=== PATIENT | female | born 2000 | race African-American/Black ===

== ENCOUNTER 2022-07-25 14:54 | Emergency (ER) | payer OTHER, SELFPAY ==
[2022-07-25 15:07] VITALS: BP 129/74; PULSE 82; RESP 16; TEMP 36.4; O2SAT 99
--- NOTE | 2022-07-25 15:38 | ED.GENADULT ---
HPI - General Adult General Chief complaint: Urogenital-Female Stated complaint: perez Time Seen by Provider: 07/25/22 15:20 Source: patient, RN notes reviewed and old records reviewed Mode of arrival: ambulatory Limitations: no limitations History of Present Illness HPI narrative: 22 year old female who presents to [facility] care with complaints of having her menses on July 08 and stopped on the . She reports that she had heavier flow at first then just spotting. She reports that yesterday she started spotting again with flow a little heavier today, mild cramping. Patient denies any acute pain to abdomen or to back..... Patient reports that she has no concern for STD's, has not been on any recent antibiotics and is not taking any control. Patient states that she had a little bit of a headache and some nausea a few days ago that was intermittent for one day.. Patient has a 6 year old child, has never had abnormal pap and states that it has been over a year since she had PAP. Patient states she completed [employer] school in February and she has been studying to take her boards. complaint: abnormal uterine bleeding Onset (ago): day(s) (2) Related Data Allergies Allergy/AdvReac Type Severity Reaction Status Date / Time No Known Allergies Allergy Verified 07/25/22 15:26 Review of Systems Review of Systems: CONSTITUTIONAL: Denies fever, chills, or sweats. EYES: Denies visual changes, redness, or discharge. ENT: Denies rhinorrhea, congestion, sore throat, or otalgia. CARDIOVASCULAR: Denies chest pain, palpitations, or edema. RESPIRATORY: Denies cough or dyspnea. GASTROINTESTINAL: cramping lower abdominal area, no nausea, vomiting, or diarrhea. GENITOURINARY: Denies dysuria or hematuria. SKIN: Denies rash or itching. MUSCULOSKELETAL: Denies back pain, joint pain, or myalgia. NEUROLOGIC: Denies present headache, numbness, or weakness. PSYCHIATRIC: Denies anxiety or depression. All systems reviewed & are unremarkable except as noted in HPI and below PMFSH Surgical History Surgical History (Updated 07/28/22 @ 21:06 by Katie Chaidez NP) Previous section Social History Social History (Updated 07/28/22 @ 21:06 by Katie Chaidez NP) Smoking status: Never smoker Alcohol intake: current Alcohol use details: social Substance use type: does not use Living arrangements: with family Gender identity (if verbalized by the patient): Female Comments At time of signature, agree with nursing past medical, surgical, social and family history. There is no relevant family history pertinent to the presenting complaint Exam Narrative: GENERAL: Well-appearing, well-nourished, and in no acute distress. HEAD: Normocephalic, atraumatic. EYES: PERRLA and EOMI. ENT: Nares clear, no rhinorrhea or epistaxis. Mucous membranes moist.TM's normal with good light reflex, throat pink with no lesions or swelling NECK: Supple.no lymphadenopathy CHEST: Clear to auscultation. No respiratory distress.SAO2 99% on room air HEART: Regular rate and rhythm. No murmur heard. Normal peripheral pulses. ABDOMEN: Soft, nontender to palpation no McBurney point tenderness,reports some lower abdominal cramping no severe pain, nondistended, normal active bowel sounds. EXTREMITIES: Normal range of motion. No edema. SKIN: Warm, dry, no rash. NEURO: No focal deficits. Alert and oriented x3. Course Course Level of Care: Express Care Visit Vital Signs Vital signs: Vital Signs Temperature 36.4 C L 07/25/22 15:07 Pulse Rate 82 07/25/22 15:07 Respiratory Rate 16 07/25/22 15:07 Blood Pressure 129/74 07/25/22 15:07 Pulse Oximetry 99 07/25/22 15:07 Oxygen Delivery Room Air 07/25/22 15:07 Temperature 36.4 C L 07/25/22 15:07 Pulse Rate 82 07/25/22 15:07 Respiratory Rate 16 07/25/22 15:07 Blood Pressure 129/74 07/25/22 15:07 Pulse Oximetry 99 07/25/22 15:07 Oxygen Delivery Room Air 07/25/22 15:07 Medi
== END 2022-07-25 16:02 | disposition home or self-care (01) ==
PROVIDERS: Emergency Provider Registered Nurse
DX: N39.8 Other specified disorders of urinary system (principal)
CPT/HCPCS: 81025; 99203; G0463

== ENCOUNTER 2023-03-19 11:42 | Outpatient (CLI) | payer OTHER, SELFPAY ==
[2023-03-19 12:09] LABS: Basophils Percent Auto 0.3 % (0.2-1.2); Eosinophils Absolute Auto 0.2 K/mm3 (0-0.3); Eosinophils Percent Auto 2.2 % (0-4.4); Hematocrit 30.2 % (37.0-47.0); Hemoglobin 9.6 g/dL (12.0-15.0); Immature Granulocyte Absolute 0.03 K/mm3 (0.00-0.031); Immature Granulocyte Percent A 0.4 % (0-0.5); Lymphocytes Percent Auto 19.7 % (18.3-44.2); Mean Corpuscular HGB Conc 31.8 g/dl (32-36); Mean Corpuscular Hemoglobin 26.5 pg (26-34); Mean Corpuscular Volume 83.4 fl (80-100); Mean Platelet Volume 10.2 fl (7.4-10.4); Monocytes Absolute Auto 0.5 K/mm3 (0.1-0.6); Monocytes Percent Auto 6.7 % (2.6-8.5); Neutrophils Absolute Auto 5.4 K/mm3 (1.3-6.7); Neutrophils Percent Auto 70.7 % (45.5-73.1); Platelet Count Result 233 k/mm3 (150-375); Red Blood Count 3.62 M/mm3 (4.2-5.4); Red Cell Distribution Width 15.9 % (11.5-14.5); White Blood Count 7.6 K/mm3 (4.5-10.0)
[2023-03-19 13:05] LABS: HIV 1/2 Ab P24 Ag Result Negative (Negative)
[2023-03-19 13:26] LABS: Hepatitis B Surface Antigen Negative (Negative); Rubella IgG Antibody 99.5 IU/ML
[2023-03-20 08:53] LABS: Rapid Plasma Reagin Non-Reactive (NonReactive)
[2023-03-26 09:10] LABS: CMV IgG Antibody <0.60 U/mL (<0.60)
[2023-03-31 14:12] LABS: CF Result NEGATIVE (NEGATIVE)
[2023-04-03 09:07] LABS: SMA 2.0 RISK VARIANT NOT DETECTED
[2023-04-03 14:35] LABS: SMA Results Received Yes
== END 2023-03-19 11:43 | disposition home or self-care (01) ==
PROVIDERS: Visit Provider Obstetrics & Gynecology
DX: N91.2 Amenorrhea, unspecified (principal)
CPT/HCPCS: 36415; 81220; 81329; 85025; 85660; 86592; 86644; 86703; 86747; 86762; 86787; 86850; 86900; 86901; 87086; 87340; G0432

== ENCOUNTER 2023-06-16 09:12 | Outpatient (CLI) | payer OTHER, SELFPAY ==
[2023-06-16 10:08] LABS: Basophils Percent Auto 0.3 % (0.2-1.2); Eosinophils Absolute Auto 0.2 K/mm3 (0-0.3); Eosinophils Percent Auto 2.7 % (0-4.4); Hematocrit 31.7 % (37.0-47.0); Hemoglobin 9.9 g/dL (12.0-15.0); Immature Granulocyte Absolute 0.04 K/mm3 (0.00-0.031); Immature Granulocyte Percent A 0.6 % (0-0.5); Lymphocytes Absolute Auto 1.34 K/mm3 (0.9-3.2); Lymphocytes Percent Auto 19.2 % (18.3-44.2); Mean Corpuscular HGB Conc 31.2 g/dl (32-36); Mean Corpuscular Hemoglobin 28.1 pg (26-34); Mean Corpuscular Volume 90.1 fl (80-100); Mean Platelet Volume 11.1 fl (7.4-10.4); Monocytes Absolute Auto 0.7 K/mm3 (0.1-0.6); Monocytes Percent Auto 10.3 % (2.6-8.5); Neutrophils Absolute Auto 4.7 K/mm3 (1.3-6.7); Neutrophils Percent Auto 66.9 % (45.5-73.1); Platelet Count Result 206 k/mm3 (150-375); Red Blood Count 3.52 M/mm3 (4.2-5.4); Red Cell Distribution Width 16.8 % (11.5-14.5)
[2023-06-16 11:00] LABS: Iron 124 ug/dL (37-170)
[2023-06-16 11:09] LABS: Percent Iron Saturation 25 % (20-50)
== END 2023-06-16 09:13 | disposition home or self-care (01) ==
PROVIDERS: Referring Provider Obstetrics & Gynecology; Visit Provider Obstetrics & Gynecology
DX: Z34.90 Encounter for supervision of normal pregnancy, unspecified, unspecified trimester (principal); Z3A.00 Weeks of gestation of pregnancy not specified
CPT/HCPCS: 36415; 82105; 82677; 83540; 83550; 84702; 85025; 86336

== ENCOUNTER 2023-07-04 12:27 | Outpatient (CLI) | payer OTHER, SELFPAY ==
[2023-07-04 14:16] LABS: Glucose 1 Hour PP 50gm Dose 96 mg/dL
== END 2023-07-04 12:28 | disposition home or self-care (01) ==
LOC: ANHLAB 12:29
PROVIDERS: Visit Provider Obstetrics & Gynecology
DX: Z34.90 Encounter for supervision of normal pregnancy, unspecified, unspecified trimester (principal); Z3A.00 Weeks of gestation of pregnancy not specified
CPT/HCPCS: 36415; 82947

== ENCOUNTER 2023-08-05 10:10 | Outpatient (CLI) | payer OTHER, SELFPAY ==
[2023-08-05 10:53] LABS: Hematocrit 32.2 % (37.0-47.0); Hemoglobin 10.3 g/dL (12.0-15.0)
== END 2023-08-05 10:11 | disposition home or self-care (01) ==
LOC: ANHLAB 10:11
PROVIDERS: Visit Provider Student in an Organized Health Care Education/Training Program
DX: O99.012 Anemia complicating pregnancy, second trimester (principal); Z3A.00 Weeks of gestation of pregnancy not specified
CPT/HCPCS: 36415; 85014; 85018

== ENCOUNTER 2023-09-24 10:21 | Inpatient (IN) | payer OTHER, SELFPAY ==
[2023-09-24] VITALS (45 sets, daily range): BP systolic 91–134; BP diastolic 47–76; PULSE 54–105; RESP 12–20; TEMP 36.2–37.1; O2SAT 81–100; BMI 36.3
--- NOTE | 2023-09-24 09:32 | PM.IMHP ---
H&P: HPI History of Present Illness Date/Time: 09/24/23 09:32 Chief Complaint: intrauterine at term prior x1 Narrative: 23-year-old 011 who presents at 39 weeks 0 days for repeat . Patient's has been largely uncomplicated. Patient did have anemia on iron supplements. She reports good movement. Review of Systems Review of Systems: All systems reviewed & are unremarkable except as noted in HPI and below Cardiovascular: Cardiovascular: Denies chest pain, Denies leg edema, Denies palpitations, Denies dyspnea and Denies dyspnea on exertion Respiratory: Respiratory: Denies cough, Denies dyspnea and Denies dyspnea on exertion Gastrointestinal: Gastrointestinal: Denies abdominal pain, Denies constipation, Denies diarrhea, Denies nausea and Denies vomiting Genitourinary: Genitourinary: Denies hematuria, Denies urinary frequency, Denies dysuria, Denies pelvic pain, Denies urinary incontinence and Denies vaginal discharge Neurologic: Reports system reviewed and no additional complaints, except as documented Psychiatric: Psychiatric: Reports no additional psychiatric complaints Endocrine: Endocrine: Denies palpitations [facility] Past Medical History Medical History (~2019) done with medication Vaginal discharge Surgical History Surgical History Previous section (07/29/15) primary c/s distress Family History Family History Grandparent Diabetes mellitus paternal grandmother Hypertension paternal grandmother Father Hypertension Social History Social History Smoking status: Never smoker Alcohol intake: former Alcohol use details: social Substance use: never Substance use type: does not use Lack of Transportation: No Lack of Food: Never True Current Housing: I Have Housing Concerned About Future Housing: No Difficulty Paying Gas/Electric Bills: No Difficulty Paying for Meds: No Currently Unemployed: No Education: Bachelor's Degree Difficulty w/ Childcare or Family Care: No Living arrangements: with family Additional living arrangements comments: pt lives with daughter 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 Gender identity (if verbalized by the patient): Female Sexual Orientation (if Verbalized by the Patient): Straight or Heterosexual Spiritual care concerns: No Meds Home Medications and Allergies Home Medications Medication Instructions Recorded Confirmed Type ondansetron HCl 4 mg tablet 4 mg PO Q6H PRN nausea and 03/19/23 09/02/23 Rx vomiting #30 tabs ferrous sulfate 325 mg (65 mg 325 mg PO DAILY 06/20/23 09/02/23 History iron) tablet (iron) prenat.vits,aleks,sjr-cxdh-qhxft 1 tablet PO DAILY 06/20/23 09/02/23 History Allergies Allergy/AdvReac Type Severity Reaction Status Date / Time No Known Allergies Allergy Verified 09/22/23 11:15 Exam Const: General: no acute distress Eyes: EOM: EOMs intact bilaterally Neck: Neck: supple Thyroid: thyroid normal Chest: Breast/axilla inspection: normal inspection of the breasts Breast/axilla palpation: normal palpation of the breasts, normal palpation of the axillae and no axillary lymphadenopathy Resp: Effort & Inspection: normal respiratory effort Auscultation: clear to auscultation bilaterally Cardio: Rate: regular rate Rhythm: regular rhythm GI: Inspection: non-distended and other (Gravid) GI Palp: Yes Soft to palpation, No Tenderness to palpation present (GI) and No Guarding due to palpation present (GI) Auscultation: normal bowel sounds : Speculum Exam - Vagina: No vaginal bleeding OB/external & speculum: external exam normal; No vaginal bleeding S
[2023-09-24] MEDS: LACTATED RINGERS 1,000 ML 125 ML IV CONT (11:07)
--- NOTE | 2023-09-24 11:15 | LDADM ---
This patient, Bonnie Mi, was admitted to Labor/Delivery/Recovery 119 on 09/24/23 at 10:21. Plans for labor, pain management and were discussed with patient. Patient/family oriented to hospital policies and general routines including ID bracelet, bed and alarms, visiting hours, pain management, procedures, bathroom and other care routines, personal items, smoking policy, room service/diet and guest tray routines, security routines, and visiting hours. Patient/Family are encouraged to report perceived risks to care and to ask questions if they do not understand what they are told or what they should do. See OBIX for further documentation.
[2023-09-24 11:21] LABS: Basophils Percent Auto 0.2 % (0.2-1.2); Eosinophils Absolute Auto 0.1 K/mm3 (0-0.3); Eosinophils Percent Auto 1.2 % (0-4.4); Hematocrit 36.2 % (37.0-47.0); Hemoglobin 11.7 g/dL (12.0-15.0); Immature Granulocyte Absolute 0.02 K/mm3 (0.00-0.031); Immature Granulocyte Percent A 0.4 % (0-0.5); Lymphocytes Absolute Auto 1.44 K/mm3 (0.9-3.2); Lymphocytes Percent Auto 25.3 % (18.3-44.2); Mean Corpuscular HGB Conc 32.3 g/dl (32-36); Mean Corpuscular Hemoglobin 29.6 pg (26-34); Mean Corpuscular Volume 91.6 fl (80-100); Mean Platelet Volume 11.2 fl (7.4-10.4); Monocytes Absolute Auto 0.5 K/mm3 (0.1-0.6); Monocytes Percent Auto 8.4 % (2.6-8.5); Neutrophils Absolute Auto 3.7 K/mm3 (1.3-6.7); Neutrophils Percent Auto 64.5 % (45.5-73.1); Platelet Count Result 171 k/mm3 (150-375); Red Blood Count 3.95 M/mm3 (4.2-5.4); Red Cell Distribution Width 14.1 % (11.5-14.5); White Blood Count 5.7 K/mm3 (4.5-10.0)
--- NOTE | 2023-09-24 11:36 | WPDANESEPPF ---
Anes - Initial Pre Proc Eval Procedure: Operation Date: 09/24/23 12:00 Proposed Procedures p Repeat Section - Juan Mayes MD Date/Time: 09/24/23 11:36 Surgeon: Juan Mayes MD Pre Op Diagnosis: c/s Patient Data Age: 23 Gender: F Height: 1.6 m Weight: 93 kg Last Vital Signs Pulse 83 09/24/23 11:31 BP 120/71 09/24/23 11:31 O2 Del Method Room Air 09/24/23 11:11 Allergies Allergy/AdvReac Type Severity Reaction Status Date / Time No Known Allergies Allergy Verified 09/22/23 11:15 Home Medications Medication Instructions Recorded Confirmed Type ondansetron HCl 4 mg tablet 4 mg PO Q6H PRN nausea and 03/19/23 09/02/23 Rx vomiting #30 tabs ferrous sulfate 325 mg (65 mg 325 mg PO DAILY 06/20/23 09/02/23 History iron) tablet (iron) prenat.vits,aleks,ena-fkvq-oejnx 1 tablet PO DAILY 06/20/23 09/02/23 History Laboratory Tests 09/24/23 10:43 WBC 5.7 K/mm3 (4.5-10.0) RBC 3.95 L M/mm3 (4.2-5.4) Hgb 11.7 L g/dL (12.0-15.0) Hct 36.2 L % (37.0-47.0) MCV 91.6 fl (80-100) MCH 29.6 pg (26-34) MCHC 32.3 g/dl (32-36) RDW 14.1 % (11.5-14.5) Plt Count 171 k/mm3 (150-375) MPV 11.2 H fl (7.4-10.4) Immature Gran % (Auto) 0.4 % (0-0.5) Neut % (Auto) 64.5 % (45.5-73.1) Lymph % (Auto) 25.3 % (18.3-44.2) [place] % (Auto) 8.4 % (2.6-8.5) Eos % (Auto) 1.2 % (0-4.4) Baso % (Auto) 0.2 % (0.2-1.2) Lymph # (Auto) 1.44 K/mm3 (0.9-3.2) [place] # (Auto) 0.5 K/mm3 (0.1-0.6) Eos # (Auto) 0.1 K/mm3 (0-0.3) Baso # (Auto) 0.0 K/mm3 (0.0-0.1) Abs Immat Gran (auto) 0.02 K/mm3 (0.00-0.031) Absolute Neuts (auto) 3.7 K/mm3 (1.3-6.7) Absolute Nucleated RBC 0.0 K/mm3 (0.0-0.012) Nucleated RBC % 0.0 % (0.0-0.2) RPR Pending HIV 1&2 Ab/P24 Ag 4thGn Pending Blood Type O Positive Antibody Screen Pending Patient hx anesthesia problems: none Family hx anesthesia problems: none Results Review: All pre-operative results and documents have been reviewed as part of the pre-operative evaluation. [facility] [place] Past Medical History Medical History (~2019) done with medication Vaginal discharge Surgical History Surgical History Previous section (07/29/15) primary c/s distress Family History Family History Grandparent Diabetes mellitus paternal grandmother Hypertension paternal grandmother Father Hypertension Social History Social History Smoking status: Never smoker Alcohol intake: former Alcohol use details: social Substance use: never Substance use type: does not use Lack of Transportation: No Lack of Food: Never True Current Housing: I Have Housing Concerned About Future Housing: No Difficulty Paying Gas/Electric Bills: No Difficulty Paying for Meds: No Currently Unemployed: YES Education: Bachelor's Degree Difficulty w/ Childcare or Family Care: No Living arrangements: with family Additional living arrangements comments: pt lives with daughter 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
[2023-09-24 11:59] LABS: HIV 1/2 Ab P24 Ag Result Negative (Negative)
[2023-09-24] MEDS: ceFAZolin 2 GM/D5W 50 ML 2 GM/50 ML BAG IVPB (11:59)
[2023-09-24] MEDS: KETOROLAC 30 MG/ML VIAL (*BKC) IV PUSH (12:55)
--- NOTE | 2023-09-24 13:03 | P.PCNOB_ITS ---
OB - Delivery Note Procedure Delivery date: 09/24/23 Pre-op diagnosis: Previous Delivery Post-op Diagnosis: Same Induction method: None Delivery monitor: None Procedure Performed: Repeat Secondary branch: low cervical, transverse Surgeon: Juan Mayes MD Anesthesia type: Spinal Description of Procedure/Findings: The patient was taken to the operating room where epidural anesthesia was found to be adequate. She was then prepped and draped in the usual sterile fashion in the dorsal supine position with a leftward tilt. A Pfannenstiel skin incision was then made with the scalpel and carried through to the underlying layer of fascia. The fascia was then incised in the midline and the incision extended laterally with the Tate scissors. The superior aspect of the fascia was then grasped with the Shimon clamps, elevated, and the underlying rectus m uscles dissected off bluntly and sharply. Attention was then turned to the inferior aspect of this incision which, in a similar fashion, was grasped, tented up with the Shimon clamps, and the rectus muscles dissected off both bluntly and sharply. The rectus muscles were then in the midline, and the peritoneum identified, tented up, and entered sharply with the Metzenbaum scissors. The peritoneal incision was then extended superiorly and inferiorly with good visualization of the bladder. The peritoneum was intimately adherent to the anterior uterus. This adhesions was dissected off of the uterus with Bovie cautery. An jie ring retractor was placed intra-abdominally for better visualization. The lower uterine segment incised in a low, transverse fashion with the scalpel. The uterine incision was then extended bluntly . The ?s head delivered atraumatically. The remainder of the infant was delivered atraumatically. The cord was clamped and cut. The infant was handed off to the waiting pediatricians (staff). Cord gasses were sent. The placenta was then removed manually, the uterus exteriorized, and cleared of all clots and debris. The uterine incision was repaired with 0 vicryl in a running fashion. The uterus was returned to the abdomen. The uterus was then reinspected to ensure hemostasis as were all subfascial tissues. The peritoneum was re-approximated with 3-0 vicryl in a running fashion. There was some minor bleeding from the rectus muscles. Hemaderm was placed for hemostasis. The fascia was reapproximated with 0 vicryl in a running fashion. The subcutaneous tissue was copiously irrigated with saline. The subcutaneous tissue was reapproximated using 3-0 Vicryl in a running fashion. The skin was closed with 4-0 vicryl. The patient tolerated the procedure well. Sponge, lap and needle counts were correct times three. The patient was taken to the recovery room in stable condition. Specimen: No Estimated Blood Loss: 515 Drains: No Packing: No Pathology: None sent Complications: No immediate complications Condition: Stable Disposition: Floor Baby Date of : 09/24/23 Time of : 12:30 Weeks of gestation at delivery: 39 gender: Female Weight (pounds): 8 Weight (ounces): 2 presentation: vertex position: Right Occiput Anterior Placenta delivery description: Manual Removal Cord Vessel Description: 3 Vessels score one minute: 8 score five minutes: 9 AMG Delivery Billing Delivery Delivery: Delivery Charge
[2023-09-24] MEDS: OXYTOCIN 30 UNITS/NS 500 ML 30 UNITS/500 ML BAG 125 UNITS IV CONT (13:54)
--- NOTE | 2023-09-24 14:52 | PM.OBDSVD ---
DS: Admitting Diagnosis Admitting Diagnosis intrauterine at term prior x 1 DS: Discharge Diagnosis Discharge Diagnosis (1) delivery delivered: Code(s): O82 - Encounter for delivery without indication Status: Acute OB - DS: Summary OB Procedures : None OB Procedures Intrapartum: low cervical, transverse OB Procedures: : None Peripartum Data Infant Delivery Method: Section Procedures: Procedures Operation Date: 09/24/23 12:00 Actual Procedure Side Surgeon p Repeat Section Juan Mayes MD complications: none Status at Discharge Functional status at discharge: independent ambulation Overall status at discharge: patient is progressing back to baseline Time Spent with Patient Time attestation: Total time spent providing and/or coordinating discharge services: Time spent: Less than 30 minutes Exam Const: General: comfortable and no acute distress Resp: Effort & Inspection: normal respiratory effort Auscultation: clear to auscultation bilaterally Cardio: Rate: regular rate GI: Inspection: non-distended GI Palp: Yes Soft to palpation, No Firmness to palpation present (GI), Yes Tenderness to palpation present (GI) (mild tenderness over incision ) and No Guarding due to palpation present (GI) Auscultation: normal bowel sounds Psych: Appearance: grossly normal Mental Status: mental status grossly normal DS: Data Data Completed and Pending Labs on day of discharge: Labs from last 24 hours 09/24/23 10:43 WBC 5.7 RBC 3.95 L Hgb 11.7 L Hct 36.2 L MCV 91.6 MCH 29.6 MCHC 32.3 RDW 14.1 Plt Count 171 MPV 11.2 H Immature Gran % (Auto) 0.4 Neut % (Auto) 64.5 Lymph % (Auto) 25.3 [place] % (Auto) 8.4 Eos % (Auto) 1.2 Baso % (Auto) 0.2 Lymph # (Auto) 1.44 [place] # (Auto) 0.5 Eos # (Auto) 0.1 Baso # (Auto) 0.0 Abs Immat Gran (auto) 0.02 Absolute Neuts (auto) 3.7 Absolute Nucleated RBC 0.0 Nucleated RBC % 0.0 RPR Pending HIV 1&2 Ab/P24 Ag 4thGn Negative Blood Type O Positive Antibody Screen Pending Antibody Identification Pending Antigen Identification Pending ROSELIA, IgG Interpret Not Performed ROSELIA, Poly Interpret Neg ROSELIA, Complement Interp Not Performed Discharge Plan Discharge Discharging Clinician: Juan Mayes Patient Disposition: Home, Self-Care Activity: pelvic rest Diet: regular Wound Care Instructions: incision open to air Discharge Instructions: Education: Mom and Baby Guide Given to: Mother Follow-Up: Call you delivering provider's office for an appointment to be seen in: 3 Weeks Mom should come to the [facility] for the follow-up appointment. Appointment Date/Time: September 29, 2023 at 10:00 am What to expect at your follow-up visit: Blood Pressure Check Physical Assessment Call [phone] if you are unable to keep your appointment time. BREAST CARE: * Wear a snug supportive bra. * For engorgement discomfort: Breast Feeding: * Apply warm moist washcloths * Express milk as needed to relieve engorgement * Wear loose clothing Bottle Feeding: * May apply ice packs * For sore nipples: * Identify correct latch-on * Apply warm moist washcloths before and after nursing * Air dry nipples after nursing * May apply Lansinoh cream to nipples ABDOMINAL INCISION: (if applicable) * Allow incision to air dry * Do NOT use lotions for powders on your incision * When showering, allow soap and water to run over the incision, but do not wash incision PERINEAL CARE: * Until bleeding stops, use your emely bottle after urinating * Change your pad frequently throughout the day * You may take sitz baths several times a day (fill your bathtub with warm water and soak for 20 minutes.) Do NOT bathe in the water * No tub baths until seen
--- NOTE | 2023-09-24 15:40 | PC.NURSE ---
Patient transferred to post room #284 via stretcher. Support person present. Oriented to unit, room, information board, rooming in, admission packet and security measures. Patient verbalizes understanding.
[2023-09-24] MEDS: DEXTROSE 5%/0.45% SOD CHL 1,000 ML 125 ML IV CONT (18:11)
[2023-09-25] MEDS: diphenhydrAMINE HCl CAP 25 MG CAPSULE PO ×2 (02:40→14:20)
[2023-09-25 05:14] VITALS: BP 122/82; PULSE 64; RESP 20; TEMP 36.9; O2SAT 99
[2023-09-25] MEDS: IBUPROFEN 600 MG TABLET PO ×3 (05:44→21:36)
[2023-09-25] MEDS: HYDROcodone/acetaminophen (*CRX) 5-325 MG TABLET 1 TAB PO ×3 (05:44→21:36)
[2023-09-25 07:55] VITALS: BP 108/73; PULSE 62; RESP 18; TEMP 37.2; O2SAT 100
[2023-09-25 08:34] LABS: Basophils Percent Auto 0.1 % (0.2-1.2); Eosinophils Percent Auto 0.2 % (0-4.4); Hematocrit 32.6 % (37.0-47.0); Hemoglobin 10.8 g/dL (12.0-15.0); Immature Granulocyte Absolute 0.05 K/mm3 (0.00-0.031); Immature Granulocyte Percent A 0.4 % (0-0.5); Lymphocytes Absolute Auto 1.78 K/mm3 (0.9-3.2); Lymphocytes Percent Auto 14.1 % (18.3-44.2); Mean Corpuscular HGB Conc 33.1 g/dl (32-36); Mean Corpuscular Hemoglobin 30.3 pg (26-34); Mean Corpuscular Volume 91.3 fl (80-100); Mean Platelet Volume 10.7 fl (7.4-10.4); Monocytes Absolute Auto 1.4 K/mm3 (0.1-0.6); Monocytes Percent Auto 10.8 % (2.6-8.5); Neutrophils Absolute Auto 9.4 K/mm3 (1.3-6.7); Neutrophils Percent Auto 74.4 % (45.5-73.1); Platelet Count Result 165 k/mm3 (150-375); Red Blood Count 3.57 M/mm3 (4.2-5.4); Red Cell Distribution Width 14.1 % (11.5-14.5); White Blood Count 12.7 K/mm3 (4.5-10.0)
[2023-09-25] MEDS: POLYSACCHARIDE IRON COMPLEX 150 MG CAPSULE PO (11:30)
[2023-09-25] MEDS: MULTIVIT/MIN/PREN/FOL AC/IRON TABLET 1 TAB PO (11:30)
[2023-09-25] MEDS: DOCUSATE SODIUM 100 MG CAPSULE PO (11:30)
--- NOTE | 2023-09-25 11:30 | PC.NURSE ---
Pt pumped her breasts via assistance of building energy consultant.
[2023-09-25] MEDS: TETANUS,DIPHTHERIA,AC PERTUSSIS ADULT (0.5 ML) BOOSTRIX IM (11:31)
[2023-09-25 12:45] VITALS: BP 106/67; PULSE 72; RESP 16; TEMP 37; O2SAT 100
[2023-09-25 13:18] LABS: Rapid Plasma Reagin Non-Reactive (NonReactive)
--- NOTE | 2023-09-25 16:00 | PC.NURSE ---
Pt left with grandmother for therapeutic leave to [facility] to see baby.
--- NOTE | 2023-09-25 16:07 | WPDANLDNPN2 ---
Anes-Prog Note L&D-Neuraxial Date/Time: 09/25/23 16:07 Neuraxial medications: intrathecal PF morphine Opiod-related complaints: pruritis moderate, treatment effective Patient feedback: Patient satisfied with post-operative pain management.
--- NOTE | 2023-09-25 16:07 | WPDANLDPN2 ---
Anes-Prog Note L&D Date/Time: 09/25/23 16:07 Comfortable throughout: section Neuraxial method: spinal Epidural/Spinal procedure site: clean & non-tender Neuro status: Neuro function grossly intact. Cardiovascular status: normal Respiratory status: normal Airway patency: baseline Mental status: baseline Post-Op hydration status: normal Vital Signs: Last Vital Signs Temp 37.0 C 09/25/23 12:45 Pulse 72 09/25/23 12:45 Resp 16 09/25/23 12:45 BP 106/67 09/25/23 12:45 Pulse Ox 100 09/25/23 12:45 O2 Del Method Room Air 09/25/23 05:14 Pain score (VAS): 3/10 I/O: Intake & Output 09/25/23 09/25/23 09/25/23 07:59 15:59 23:59 Intake Total 1000 Output Total 300 Balance 1000 -300 Post-procedural complaints: none Patient feedback: Patient satisfied with anesthetic care.
--- NOTE | 2023-09-25 16:47 | PC.NURSE ---
[id number] Breast pump provided due to separation with her infant. Instructions given on pump supplies, cleaning, care, usage, that there should be no pain, pumping schedule for milk production, collection, and storage of human milk. Patient was assessed for correct placement, flange size (27mm), to pump for comfort and nipple stretching/stimulation for adequate milk production every 3 hours (8 times in 24 hours) 1-2 times at night. Demonstrated hand expression, manual expression, building a milk supply, transition of milk, work with LC at [facility]. Parents are encouraged to record the pumping schedule on the pumping log.?Mother voiced understanding of the education shared along with mom/baby guide. Reported to the Primary RN.
[2023-09-25 23:32] VITALS: BP 113/72; PULSE 76; RESP 18; TEMP 36.6; O2SAT 100
[2023-09-25] MEDS: HYDROcodone/acetaminophen (*CRX) 10-325 MG TABLET 1 TAB PO (23:38)
--- NOTE | 2023-09-26 08:07 | P.DS_ITS ---
DS: Admitting Diagnosis Discharge Date 09/26/2023 Admitting Diagnosis OB - DS: Summary OB Procedures : None OB Procedures Intrapartum: OB Procedures: : None Peripartum Data Procedures: Procedures Operation Date: 09/24/23 12:00 Actual Procedure Side Surgeon p Repeat Section Juan Mayes MD Time Spent with Patient Time attestation: Total time spent providing and/or coordinating discharge services: DS: Data Data Completed and Pending Labs on day of discharge: Labs from last 24 hours 09/25/23 09/24/23 08:20 10:43 WBC 12.7 H RBC 3.57 L Hgb 10.8 L Hct 32.6 L MCV 91.3 MCH 30.3 MCHC 33.1 RDW 14.1 Plt Count 165 MPV 10.7 H Immature Gran % (Auto) 0.4 Neut % (Auto) 74.4 H Lymph % (Auto) 14.1 L [place] % (Auto) 10.8 H Eos % (Auto) 0.2 Baso % (Auto) 0.1 L Lymph # (Auto) 1.78 [place] # (Auto) 1.4 H Eos # (Auto) 0.0 Baso # (Auto) 0.0 Abs Immat Gran (auto) 0.05 H Absolute Neuts (auto) 9.4 H Absolute Nucleated RBC 0.0 Nucleated RBC % 0.0 RPR Non-reactive Antibody Identification Inconclusive Antigen Identification TNP Discharge Plan Discharge Discharging Clinician: Juan Mayes Patient Disposition: Home, Self-Care Activity: pelvic rest Diet: regular Wound Care Instructions: incision open to air Patient Instructions: Antibiotic Form, (DC) Stand Alone Forms: General Discharge Information, General Discharge Instructi ons Follow-up/Referrals: Juan Mayes MD [Physician] - 4 Weeks Discharge Medications: New oxycodone-acetaminophen 5-325 mg tablet 1 tablet PO Q6H PRN (Reason: pain) Qty: 28 0RF ibuprofen 600 mg tablet 600 mg PO Q6H PRN (Reason: pain) Qty: 30 0RF Continued Vitamin Tablet 1 tablet PO DAILY ferrous sulfate [iron] 325 mg (65 mg iron) Tablet 325 mg PO DAILY ondansetron HCl 4 mg tablet 4 mg PO Q6H PRN (Reason: nausea and vomiting) Qty: 30 1RF Date of admission: 09/24/23 10:21 Primary Care Provider: Antwan Admitting Provider: Juan Mayes Attending physician on admission: Juan Mayes Condition: Stable
[2023-09-26] MEDS: DOCUSATE SODIUM 100 MG CAPSULE PO (08:18)
[2023-09-26] MEDS: MULTIVIT/MIN/PREN/FOL AC/IRON TABLET 1 TAB PO (08:18)
[2023-09-26] MEDS: HYDROcodone/acetaminophen (*CRX) 5-325 MG TABLET 1 TAB PO (08:22)
[2023-09-26 09:15] VITALS: BP 110/59; PULSE 72; RESP 18; TEMP 36.9; O2SAT 99
[2023-09-26] MEDS: IBUPROFEN 600 MG TABLET PO (10:24)
== END 2023-09-26 10:57 | disposition home or self-care (01) | DRG 540 ==
LOC: ANHLDR 14:56 → ANHOB2 09-25 08:38 → ANHLDR 09-29 09:19 → ANHOB2 09-29 09:19
PROVIDERS: Admitting Provider Student in an Organized Health Care Education/Training Program; PCP Internal Medicine; Visit Provider Obstetrics & Gynecology
PROC: 10D00Z1 Extraction of Products of Conception, Low, Open Approach (ICD-10-PCS; CPT 59514; principal; 2023-09-24 12:00)
DX: O34.211 Maternal care for low transverse scar from previous cesarean delivery (principal); Z37.0 Single live birth; Z3A.39 39 weeks gestation of pregnancy; O99.824 Streptococcus B carrier state complicating childbirth; D64.9 Anemia, unspecified; O99.02 Anemia complicating childbirth
CPT/HCPCS: 36415; 85025; 86592; 86703; 86850; 86870; 86880; 86900; 86901; 86902; 86971; 90715; A9270; G0432; J0690; J1100; J1885; J2274; J2405; J2590; J7120